=== PATIENT | male | born 1975 | race Hispanic/Latino ===

== ENCOUNTER 2017-05-05 15:18 | Emergency (ER) | payer SELFPAY ==
[~2017-05-05] VITALS: Ht 162.6 cm; Wt 57.0 kg
[2017-05-05 17:59] LABS: URINE BILIRUBIN - DIPSTICK NEGATIVE (NEGATIVE); URINE BLOOD DIPSTICK NEGATIVE (NEGATIVE); URINE COLOR YELLOW; URINE GLUCOSE - DIPSTICK NEGATIVE (NEGATIVE); URINE KETONE NEGATIVE (NEGATIVE); URINE LEUK ESTERASE NEGATIVE (NEGATIVE); URINE NITRITE - DIPSTICK NEGATIVE (Negative); URINE PROTEIN - DIPSTICK NEGATIVE (NEG-TRACE); URINE SPECIFIC GRAVITY <=1.005; URINE UROBILINOGEN - DIPSTICK 0.2 E.U./dL (0.2)
[2017-05-05 18:01] LABS: URINE CLARITY CLEAR
[2017-05-05] MEDS ORDERED: ULTRAM50 M1 PO (18:32)
[2017-05-05 18:35] VITALS: BP 119/74
== END 2017-05-05 18:35 | disposition home or self-care (01) | DRG 730 ==
LOC: ED 15:18
PROVIDERS: Emergency Medicine
DX: N43.3 Hydrocele, unspecified (principal)

== ENCOUNTER 2017-07-22 05:12 | Emergency (ER) | payer SELFPAY ==
[~2017-07-22] VITALS: Ht 162.6 cm; Wt 54.5 kg
[~2017-07-22 05:12] MED LIST: ULTRAM50 M1 PO
[2017-07-22 05:49] LABS: HEMATOCRIT 32.5 % (39.0-50.0); HEMOGLOBIN 10.7 g/dl (14.0-18.0); IMMATURE GRANULOCYTES 0.2 % (0.0-1.0); MEAN CELL VOLUME 85.5 fL CALC (80.0-100.0); MEAN CORPUSCULAR HGB 28.2 pG CALC (26.0-32.0); MEAN CORPUSCULAR HGB CONC 32.9 g/L CALC (32.0-36.0); NEUT# 2.15 thou/uL (1.82-7.42); RED BLOOD COUNT 3.8 mill/uL (4.70-6.10); RED CELL DISTRI WIDTH 19.5 % (11.5-15.5)
[2017-07-22 05:51] LABS: BARBITURATES NEGATIVE (NEGATIVE); COCAINE NEGATIVE (NEGATIVE); METHADONE NEGATIVE (NEGATIVE); OXCYCODONE NEGATIVE (NEGATIVE); TETRAHYDROCANNABIONOL NEGATIVE (NEGATIVE); TRICYLIC ANTIDEPRESSANTS NEGATIVE (NEGATIVE)
[2017-07-22 06:02] LABS: ALBUMIN 4.6 g/dL (3.2-5.0); ALKALINE PHOSPHATASE 94 u/l (38-126); ANION GAP 18 (6-22 (CALC)); BILIRUBIN, TOTAL 0.4 mg/dL (0.0-1.4); BUN 11 mg/dL (9-20); BUN/CREATININE RATIO 18 (12-20 (CALC)); CARBON DIOXIDE 27 mmol/l (22-30); CHLORIDE 104 mmol/l (95-108); CREATININE 0.6 mg/dL (0.7-1.3); ETHYL ALCOHOL 214 mg/dl (0-30); GFR > 60 ML/MIN (>=60 (CALC)); GFR FOR AFR.AMER. > 60 ML/MIN (>=60 (CALC)); LIPASE 128 u/l (23-300); POTASSIUM 4.2 mmol/l (3.5-5.1); SGOT/AST 66 u/l (17-59); SGPT/ALT 33 u/l (21-72); SODIUM 144 mmol/l (137-146); TOTAL PROTEIN 7.9 g/dL (6.3-8.2)
[2017-07-22] MEDS ORDERED: PROTONIX40 MG PO (06:39)
[2017-07-22 08:41] VITALS: BP 117/65
== END 2017-07-22 08:41 | disposition home or self-care (01) | DRG 897 ==
LOC: ED 05:12
PROVIDERS: Emergency Medicine
DX: F10.129 Alcohol abuse with intoxication, unspecified (principal); F14.10 Cocaine abuse, uncomplicated; R10.13 Epigastric pain; H54.62 Unqualified visual loss, left eye, normal vision right eye
CPT/HCPCS: S0164